=== PATIENT | female | born 1985 | race Caucasian/White ===

== ENCOUNTER 2016-12-14 00:03 | Emergency (ER) | payer OTHER ==
[~2016-12-14] VITALS: Ht 170.2 cm; Wt 88.5 kg
[2016-12-14] MEDS ORDERED: PROVENTIL,2.5 MG/3 M IH (00:23)
[2016-12-14] MEDS ORDERED: PREDNISONE20 MG PO (00:24)
[2016-12-14 00:58] VITALS: BP 104/53
== END 2016-12-14 00:58 | disposition home or self-care (01) ==
LOC: EDBD 00:03 → EME 00:03
DX: J45.909 Unspecified asthma, uncomplicated (principal); F17.200 Nicotine dependence, unspecified, uncomplicated
CPT/HCPCS: 99281; 99284; J1100; J7644

== ENCOUNTER 2017-01-05 18:32 | Emergency (ER) | payer OTHER ==
[~2017-01-05] VITALS: Ht 160 cm; Wt 92.9 kg
[~2017-01-05 18:32] MED LIST: PREDNISONE20 MG PO; PROVENTIL,2.5 MG/3 M IH
[2017-01-05] MEDS ORDERED: KEFLEX500 MG PO (20:21)
[2017-01-05 20:28] VITALS: BP 116/70
[2017-01-09] MEDS ORDERED: BACTRIM,SEPT1 TABLET PO (11:48)
== END 2017-01-05 20:28 | disposition home or self-care (01) ==
LOC: EME 18:32
DX: L03.116 Cellulitis of left lower limb (principal); J44.9 Chronic obstructive pulmonary disease, unspecified; F17.200 Nicotine dependence, unspecified, uncomplicated
CPT/HCPCS: 99281; 99283

== ENCOUNTER 2017-01-07 12:51 | Emergency (ER) | payer OTHER ==
[~2017-01-07] VITALS: Ht 170.2 cm; Wt 90.7 kg
[~2017-01-07 12:51] MED LIST changes: +KEFLEX500 MG PO
[2017-01-07 15:33] VITALS: BP 107/64
[2017-01-09] MEDS ORDERED: BACTRIM,SEPT1 TABLET PO (11:48)
== END 2017-01-07 15:34 | disposition home or self-care (01) ==
LOC: EME 12:51
PROC: 0H9LXZZ Drainage of Left Lower Leg Skin, External Approach (ICD-10-PCS; principal; 2017-01-07)
DX: L02.416 Cutaneous abscess of left lower limb (principal); F17.200 Nicotine dependence, unspecified, uncomplicated
CPT/HCPCS: 99281; 99284

== ENCOUNTER 2017-01-30 14:17 | Emergency (ER) | payer OTHER ==
[~2017-01-30] VITALS: Ht 170.2 cm; Wt 96.4 kg
[~2017-01-30 14:17] MED LIST changes: +BACTRIM,SEPT1 TABLET PO
[2017-01-30] MEDS ORDERED: ATROVENT 00.5 MG/2.5 IH (15:27)
[2017-01-30] MEDS ORDERED: PROVENTIL,2.5 MG/3 M IH (15:27)
[2017-01-30] MEDS ORDERED: PREDNISONE20 MG PO (15:27)
[2017-01-30] MEDS ORDERED: VENTOLIN HFA18 GM IH (15:27)
[2017-01-30 15:34] VITALS: BP 110/72
== END 2017-01-30 15:35 | disposition home or self-care (01) ==
LOC: EME 14:17
DX: J45.901 Unspecified asthma with (acute) exacerbation (principal); J44.9 Chronic obstructive pulmonary disease, unspecified; F17.200 Nicotine dependence, unspecified, uncomplicated
CPT/HCPCS: 71020; 94640; 99281; 99284; J7512

== ENCOUNTER 2017-02-02 23:34 | Emergency (ER) | payer OTHER ==
[~2017-02-02] VITALS: Ht 170.2 cm; Wt 99.6 kg
[~2017-02-02 23:34] MED LIST changes: +ATROVENT 00.5 MG/2.5 IH; +VENTOLIN HFA18 GM IH
[2017-02-03 00:10] LABS: HEMATOCRIT 39.3 % (36.0-46.0); MCHC 32.6 G/DL (30.0-36.0); MCV 89.1 FL (83-99); MEAN PLAT.VOLUME 10.7 uM^3 (9.5-12.4); PLATELET COUNT 207 K/uL (156-360); RBC DIS.WIDTH-CV 13.3 % (11.8-14.6); RBC DIS.WIDTH-SD 43.3 % (39-53); RED BLOOD COUNT 4.41 M/uL (3.80-5.20)
[2017-02-03 00:22] LABS: CHLORIDE 107 mEq/L (99-109); SODIUM 140 mEq/L (136-147)
[2017-02-03 00:23] LABS: GLUCOSE 150 mg/dL (70-99)
[2017-02-03 00:25] LABS: ANION GAP 12 MEQ/L (2-14)
[2017-02-03 00:27] LABS: GFR ESTIMATE (CALCULATED) > 59 mL/min/
[2017-02-03 00:28] LABS: UREA NITROGEN (BUN) 12 mg/dL (9-23)
[2017-02-03] MEDS ORDERED: PROVENTIL,2.5 MG/3 M IH (02:07)
[2017-02-03] MEDS ORDERED: PREDNISONE20 MG PO (02:07)
[2017-02-03] MEDS ORDERED: ROBITUSSIN AC,T10 ML PO (02:07)
[2017-02-03] MEDS ORDERED: NEBULIZER MC (02:08)
[2017-02-03 02:34] VITALS: BP 123/68
== END 2017-02-03 02:34 | disposition home or self-care (01) ==
LOC: EME 23:34
DX: J45.901 Unspecified asthma with (acute) exacerbation (principal); J06.9 Acute upper respiratory infection, unspecified; F17.200 Nicotine dependence, unspecified, uncomplicated
CPT/HCPCS: 71020; 80048; 85027; 94640; 94640 76; 99281; 99284